=== PATIENT | female | born 1950 | race Caucasian/White ===

== ENCOUNTER → 2017-05-21 | Outpatient (CLI) | payer MEDICARE ==
[~2017-05-21] MED LIST: CALC-118 PO; MULT-658 PO; OMEG1CAP39 PO; [UNRECOGNIZED DRUG - REMARK]
== END | disposition home or self-care (01) ==
LOC: CFH 09:06 → EDSTATUS 09:30
PROVIDERS: ATTEND Internal Medicine
DX: J44.9 Chronic obstructive pulmonary disease, unspecified (principal); J84.9 Interstitial pulmonary disease, unspecified; R91.8 Other nonspecific abnormal finding of lung field; F17.211 Nicotine dependence, cigarettes, in remission
CPT/HCPCS: 71250

== ENCOUNTER 2019-11-29 19:01 | Emergency (ER) | payer MEDICARE ==
[~2019-11-29] VITALS: Ht 144.8 cm; Wt 59.4 kg
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
[2019-11-29] MEDS ORDERED: OMEP-110 PO (19:48)
[2019-11-29] MEDS ORDERED: KETOROLAC 30 MG/1 ML IM ONE (20:00)
--- NOTE | 2019-11-29 20:04 | NUR ---
PATIENT BACK FROM
[2019-11-29] MEDS ORDERED: KETOROLAC 30 MG/1 ML ONE (20:12)
--- NOTE | 2019-11-29 20:22 | NUR ---
PATIENT MEDICATED PER EMAR, TOLERATED WELL. PATIENT AMBULATORY WITH STEADY GAIT TO RESTROOM
[2019-11-29 20:37] LABS: BASOPHILS # (AUTO) 0.08 x10^3/uL (0-0.1); BASOPHILS % (AUTO) 1 % (0-1); EOSINOPHILS # (AUTO) 0.35 x10^3/uL (0-0.4); EOSINOPHILS % (AUTO) 3 % (1-7); LYMPHOCYTES # (AUTO) 4.09 x10^3/uL (1-3.4); LYMPHOCYTES % (AUTO) 32 % (22-44); MD NO; MEAN CORPUSCULAR HGB CONC 33.4 g/dL (32.4-35.8); MEAN CORPUSCULAR VOLUME 89.8 fL (80-100); MEAN PLATELET VOLUME 7.6 fL (7.4-10.4); MONOCYTES # (AUTO) 1.11 x10^3/uL (0.2-0.8); MONOCYTES % (AUTO) 9 % (2-9); NEUTROPHILS # (AUTO) 7.35 x10^3/uL (1.8-6.8); NEUTROPHILS % (AUTO) 57 % (42-75); PLATELET COUNT 379 x10^3/uL (130-400); RED BLOOD COUNT 4.58 x10^6/uL (3.82-5.3); RED CELL DISTRIBUTION WIDTH 13.3 % (9.6-15.2)
[2019-11-29 20:48] LABS: ANION GAP 8 mmol/L (5-15); CALCIUM 9.3 mg/dL (8.5-10.1); CHLORIDE 109 mmol/L (98-107); CREATININE 0.95 mg/dL (0.55-1.02)
[2019-11-29] MEDS ORDERED: ONDANSETRON 2MG/ML, 2ML ONE (21:28)
[2019-11-29] MEDS ORDERED: MORPHINE SULFATE 4 MG/ML, 1ML ONE (21:28)
[2019-11-29] MEDS ORDERED: MORPHINE SULFATE 4 MG/ML, 1ML IVPush PRN (21:30)
[2019-11-29] MEDS ORDERED: ONDANSETRON 2MG/ML, 2ML IVPush ONE (21:30)
--- NOTE | 2019-11-29 21:43 | NUR ---
GIVEN PARTIAL DOSE OF MORPHINE PER PATIENT REQUEST
--- NOTE | 2019-11-29 21:51 | NUR ---
PATIENT TO CT
[2019-11-29 22:53] VITALS: BP 123/48
== END 2019-11-29 23:04 | disposition home or self-care (01) ==
LOC: ED 22:30
DX: S86.912A Strain of unspecified muscle(s) and tendon(s) at lower leg level, left leg, initial encounter (principal); X58.XXXA Exposure to other specified factors, initial encounter; Y93.89 Activity, other specified; Y92.009 Unspecified place in unspecified non-institutional (private) residence as the place of occurrence of the external cause; Y99.8 Other external cause status
CPT/HCPCS: 36415; 73700; 80048; 85025; 93971; 96372; 96374; 96375; 99285; J1885; J2270; J2405